=== PATIENT | female | born 2000 | race Caucasian/White ===

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

== ENCOUNTER 2024-04-18 13:01 | Inpatient (IN) | payer MEDICAID ==
[~2024-04-18] VITALS: Ht 157.5 cm; Wt 115.5 kg
[~2024-04-18 13:01] MED LIST: ADDERALL10 MG PO
[2024-04-24] MEDS ORDERED: Ondansetron 4 MG/2 ML VIAL IV SCH (20:30)
[2024-04-24] MEDS ORDERED: LR 1,000 ML IV SCH (20:30)
[2024-04-25] VITALS (16 sets, daily range): BP systolic 93–137; BP diastolic 48–80; PULSE 66–119; TEMP 97.8–98
--- NOTE | 2024-04-25 08:00 | NUR ---
PT AMBULATORY TO UNIT WITH SUPPORT PERSON. REPORTS NO CTX, NO LOF, NO VAGINAL BLEEDING, POSITIVE MOVEMENT. VS STABLE, EFM CAT 1.
[2024-04-25] MEDS ORDERED: LR 1,000 ML IV SCH (08:15)
[2024-04-25] MEDS ORDERED: PRENATAL TABLET PO (08:49)
[2024-04-25] MEDS ORDERED: NATURAL IRON65 MG (08:50)
[2024-04-25 08:59] LABS: BASO % 0.3 % (0.0-2.0); EOS # 0.1 K/mm3 (0.0-0.7); EOS % 0.6 % (0.0-4.0); GRAN # 9.8 K/mm3 (1.4-6.5); GRAN % 73.9 % (42.2-75.2); HEMOGLOBIN 11.6 g/dl (12.5-16.0); LYMPH # 2.3 K/mm3 (1.2-3.4); LYMPH % 17.3 % (20.0-51.0); MEAN CELL VOLUME 86 fl (80.0-100.0); MEAN CORPUSCULAR HEMOGLOBIN 30 pg (27-31); MEAN CORPUSCULAR HGB CONC 35 g/dl (33.0-37.0); MEAN PLATELET VOLUME 11.6 fl (7.4-10.4); MONO % 7.2 % (1.7-9.3); PLATELET COUNT 217 K/mm3 (130-400); RED BLOOD COUNT 3.91 M/mm3 (4.10-5.30)
[2024-04-25 09:02] LABS: HEMATOCRIT 33.5 % (37.0-47.0)
[2024-04-25] MEDS ORDERED: Ketorolac 30 MG/ML VIAL ONE (09:17)
[2024-04-25] MEDS ORDERED: NS 10 ML IV ONE (09:17)
[2024-04-25] MEDS ORDERED: Oxytocin 10 UNITS/ML VIAL ONE (09:17)
[2024-04-25] MEDS ORDERED: dexAMETHasone 10 MG/ML VIAL ONE (09:17)
[2024-04-25] MEDS ORDERED: Ondansetron 4 MG/2 ML VIAL ONE (09:17)
--- NOTE | 2024-04-25 10:11 | NUR ---
PT IN OPERATING ROOM FOR REPEAT SECTION PERFORMED BY DR. CHANEL WITH ASSIST BY DR. GUADARRAMA. AROM OF CLEAR FLUID AT 1011. DELIVERY OF VIABLE FEMALE INFANT AT 1011. DELIVERY OF PLACENTA AT 1012. AFTER SECTION, PT TRANSFERRED TO PACU IN STABLE CONDITION. WILL CONTINUE TO MONITOR IN PACU AND
[2024-04-25] MEDS ORDERED: LR 1,000 ML IV ONE (10:12)
[2024-04-25] MEDS ORDERED: Loratadine 10 MG TAB PO PRN (11:00)
[2024-04-25] MEDS ORDERED: oxyCODONE 5 MG TAB PO PRN (11:00)
[2024-04-25] MEDS ORDERED: Morphine 4 MG/ML VIAL IV PRN (11:00)
[2024-04-25] MEDS ORDERED: Magnes Hydrox (MOM) 80 MG/ML 30 ML CUP PO PRN (11:00)
[2024-04-25] MEDS ORDERED: Acetaminophen 500 MG TAB PO SCH (11:00)
[2024-04-25] MEDS ORDERED: Measles/Mumps/Rubella Virus Vaccine Live w Diluent 0.5 ML VIAL SQ SCH (11:00)
[2024-04-25] MEDS ORDERED: Ondansetron 4 MG/2 ML VIAL IV PRN (11:00)
[2024-04-25] MEDS ORDERED: LR 1,000 ML IV PRN (11:00)
[2024-04-25] MEDS ORDERED: Naloxone 0.4 MG/ML VIAL IV PRN (11:00)
--- NOTE | 2024-04-25 14:34 | NUR ---
PT NURSING DID VERBAL INSTRUCT ON I.S. PT STATED SHE HAD USED ONE BEFORE.
[2024-04-25] MEDS ORDERED: Ibuprofen 600 MG TAB PO SCH (16:58)
[2024-04-25] MEDS ORDERED: Sennosides/Docusate 8.6-50 MG TAB PO SCH (17:00)
--- NOTE | 2024-04-25 17:35 | NUR ---
PT UP TO SIDE OF BED AFTER LIFTING LEGS BILATERALLY 5SEC. STANDING, REPORTS HIGH LEVEL OF PAIN AND DOESNT WANT TO WALK. PT STOOD THEN WALKED TO BATHROOM WITH ASSIST FROM 2 NURSES. UNABLE TO VOID, GOWN PAD AND PANTIES PLACED. MCKEON REMOVED. PT AMBULATORY BACK TO BED. BINDER ON.
[2024-04-25] MEDS ORDERED: traZODone 50 MG TAB PO PRN (21:00)
[2024-04-26 01:15] VITALS: BP 130/72; PULSE 82; TEMP 98.8
[2024-04-26 05:10] VITALS: BP 115/54; PULSE 87; TEMP 97.9
[2024-04-26 08:15] VITALS: BP 115/75; PULSE 84; TEMP 99
[2024-04-26] MEDS ORDERED: IBU600 MG PO (08:40)
[2024-04-26] MEDS ORDERED: ROXICODONE 55 MG/TAB PO (08:40)
--- NOTE | 2024-04-26 09:17 | NUR ---
Venereal Disease Investigator met with patient and father of baby, Sanford (ph#[phone]) in response to social service consult. Patient and Sanford live in [place] and they named baby girl Kirstie. Patient has another daughter, Nicolette (age 4) that lives in [place] with patient's mother, Kanika Martini. Patient advised she became at age 19 and considered an , however her mother Kanika told her that if she continued with the , she would take care of the baby. Kanika obtained guaridanship for Nicolette and will continue to live with her for the time being. Patient stated when she delivered Nicolette she was in college and felt the best option for Nicolette was to live with Kanika. Patient stated she still sees Nicolette and tries to visit every 2-3 months with their next trip planned for May 13. While they do not have any local family, patient and Sanford reported their families are supportive from a distance. Patient's father lives in [place] and is in route to visit. They also reported having many friends in the area. Patient stated she has all supplies needed for baby and plans to combo feed. Patient has a breast pump at bedside. Patient and Sanford both have vehicles and report no issues with transportation. 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 They report no issues affording housing or utilities. Patient stated they are working on establishing a electrician substation in , however if they cannot find one available they will look at a provider in [place]. SW inquired about history of PPD and patient stated she did well after the of Nicolette. SW provided [facility] Resource Guide and patient reported no concerns about returning home at this time. SW met with patient's RN to provide the above update. No concerns noted at this time and patient to discharge later this afternoon if cleared.
--- NOTE | 2024-04-26 09:49 | NUR ---
Initial visit; Parents thanked [employer] for offering congratulations and God's blessings for th the of their daughter. [employer] thanked family for choosing [facility] and was happy to hear their experience here has been good.
== END 2024-04-26 14:40 | disposition home or self-care (01) | DRG 540 ==
LOC: OB 04-25 07:59
PROVIDERS: ADMIT Obstetrics & Gynecology
PROC: 10D00Z1 Extraction of Products of Conception, Low, Open Approach (ICD-10-PCS; principal; 2024-04-25)
DX: O34.211 Maternal care for low transverse scar from previous cesarean delivery (principal); Z37.0 Single live birth; O99.214 Obesity complicating childbirth; O69.2XX0 Labor and delivery complicated by other cord entanglement, with compression, not applicable or unspecified; Z3A.39 39 weeks gestation of pregnancy
CPT/HCPCS: A9284; J0665; J0690; J1100; J1885; J2405; J2590; J7120